=== PATIENT | female | born 1995 | race Two or more races ===

== ENCOUNTER → 2017-09-16 | Outpatient (CLI) | payer BC ==
[2017-09-16 14:40] LABS: Eosinophils # (auto) 0.1 uL; Eosinophils % (auto) 1.5 % (0.0-7.0); Lymphocytes # (auto) 2.5 uL; Monocytes # (auto) 0.5 uL; Neutrophils # (auto) 6.2 uL; White Blood Cell 9.4 10^3/uL (4.4-10.8)
[2017-09-16 14:43] LABS: Basophils # (auto) 0.1 uL; Basophils % (auto) 0.7 % (0.0-2.0); Hematocrit 40.4 % (36.0-46.0); Hemoglobin 13.3 g/dL (12.2-16.2); Lymphocytes % (auto) 26.2 % (10.0-50.0); Mean Corpuscular Hemoglobin 26.9 pg (28.0-32.0); Mean Corpuscular Hgb Conc. 32.9 g/dL (32.0-36.0); Mean Corpuscular Volume 81.7 fL (80.0-100.0); Mean Platelet Volume 8.8 fL (6.9-10.8); Monocytes % (auto) 5.3 % (0.0-12.0); Neutrophils % (auto) 66.3 % (37.0-80.0); Nucleated Red Blood Cells % 0.1 %; Platelet Count (auto) 274 10^3/uL (140-450)
[2017-09-16 14:56] LABS: Albumin 3.9 g/dL (3.4-5.0); BUN/Creatinine Ratio 13.4; Bilirubin, Total 0.4 mg/dL (0.2-1.0); Calcium 9.2 mg/dL (8.5-10.1); Magnesium 2.2 mg/dL (1.6-2.6)
[2017-09-16 15:17] LABS: Urine Bilirubin Negative (Negative); Urine Blood Negative /uL (Negative); Urine Color Yellow (Yellow); Urine Glucose Normal (Normal); Urine Ketone Negative (Negative); Urine Mucus FEW (None Seen); Urine Nitrite Negative (Negative); Urine RBC 2 /hpf (0 - 4); Urine Squamous Epithelial Cell MOD /hpf (<5); Urine Urobilinogen Normal (Negative); Urine pH 6.5 (5.0-8.0)
== END | disposition home or self-care (01) ==
LOC: LAB 14:06
PROVIDERS: ATTEND Internal Medicine
DX: E11.9 Type 2 diabetes mellitus without complications (principal); E78.5 Hyperlipidemia, unspecified; E55.9 Vitamin D deficiency, unspecified
CPT/HCPCS: 36415; 80053; 80061; 81001; 82306; 82607; 83036; 83735; 84443; 84550; 85025

== ENCOUNTER → 2020-01-27 | Outpatient (CLI) | payer BC ==
[2020-01-27 15:41] LABS: Basophils # (auto) 0 10 ^3/uL (0-0.2); Basophils % (auto) 0.5 % (0.0-2.0); Eosinophils # (auto) 0.1 10 ^3/uL (0-0.8); Eosinophils % (auto) 1.8 % (0.0-7.0); Hematocrit 37.3 % (36.0-46.0); Hemoglobin 12.3 g/dL (12.2-16.2); Lymphocytes # (auto) 1.6 10 ^3/uL (0.4-5.4); Lymphocytes % (auto) 21.9 % (10.0-50.0); Mean Corpuscular Hemoglobin 27.9 pg (28.0-32.0); Mean Corpuscular Hgb Conc. 33.1 g/dL (32.0-36.0); Mean Corpuscular Volume 84.3 fL (80.0-100.0); Monocytes # (auto) 0.5 10 ^3/uL (0-1.3); Monocytes % (auto) 6.4 % (0.0-12.0); Neutrophils # (auto) 5.2 10 ^3/uL (1.6-8.6); Neutrophils % (auto) 69.4 % (37.0-80.0); Platelet Count (auto) 266 10^3/uL (140-450); Red Blood Cells 4.42 10^6/uL (4.0-5.20); Red Cell Distribution Width 15.5 % (11.8-14.3); White Blood Cell 7.4 10^3/uL (4.4-10.8)
[2020-01-27 15:44] LABS: Urine Bacteria NONE SEEN /hpf (None Seen); Urine Blood Negative /uL (Negative); Urine Mucus FEW (None Seen); Urine Specific Gravity 1.028 (1.001-1.035); Urine WBC 16 /hpf (0 - 5)
[2020-01-27 16:11] LABS: Calcium 9.1 mg/dL (8.5-10.1); Potassium 3.7 mmol/L (3.5-5.1)
[2020-01-27 16:15] LABS: BUN/Creatinine Ratio 19.5; Bilirubin, Total 0.3 mg/dL (0.2-1.0); Total Protein 8.1 g/dL (6.4-8.2)
[2020-01-27 16:20] LABS: Leuteinizing Hormone 3.2 IU/L
[2020-01-27 16:21] LABS: Follicle Stimulating Hormone 6.85 IU/L (SEE BELOW)
== END | disposition home or self-care (01) ==
LOC: LAB 15:15
PROVIDERS: ATTEND Internal Medicine
DX: R73.03 Prediabetes (principal); E55.9 Vitamin D deficiency, unspecified; R10.2 Pelvic and perineal pain
CPT/HCPCS: 36415; 80053; 81001; 82150; 83001; 83002; 83036; 83690; 84443; 85025

== ENCOUNTER → 2020-03-02 | Outpatient (CLI) | payer BC | END | disposition home or self-care (01) | LOC: LAB 13:02 | PROVIDERS: ATTEND Internal Medicine | DX: E55.9 Vitamin D deficiency, unspecified (principal); R10.2 Pelvic and perineal pain; R73.03 Prediabetes | CPT/HCPCS: 87493 ==

== ENCOUNTER → 2020-05-04 | Day surgery (SDC) | payer BC ==
[2020-05-02 11:36] LABS: Basophils # (auto) 0 10 ^3/uL (0-0.2); Eosinophils # (auto) 0.1 10 ^3/uL (0-0.8); Mean Corpuscular Hemoglobin 26.8 pg (28.0-32.0); White Blood Cell 6.9 10^3/uL (4.4-10.8)
[2020-05-02 11:39] LABS: Basophils % (auto) 0.4 % (0.0-2.0); Hematocrit 37.3 % (36.0-46.0); Hemoglobin 12.2 g/dL (12.2-16.2); Lymphocytes # (auto) 1.7 10 ^3/uL (0.4-5.4); Lymphocytes % (auto) 24.4 % (10.0-50.0); Mean Corpuscular Hgb Conc. 32.8 g/dL (32.0-36.0); Mean Corpuscular Volume 81.5 fL (80.0-100.0); Monocytes # (auto) 0.4 10 ^3/uL (0-1.3); Neutrophils # (auto) 4.6 10 ^3/uL (1.6-8.6); Neutrophils % (auto) 67.2 % (37.0-80.0); Platelet Count (auto) 260 10^3/uL (140-450); Red Blood Cells 4.58 10^6/uL (4.0-5.20)
[2020-05-02 11:44] LABS: INR 1.03 (0.9-1.15); Partial Thromboplastin Time 30.2 sec (23.64-32.05)
[~2020-05-04] VITALS: Ht 162.6 cm; Wt 108.9 kg
[~2020-05-04] MED LIST: LIDOCAINE VISCOUS 2% 15ML UD ONE; SODIUM CHLORIDE LOCK 10 ML ONE; diphenhdrAMINE HCL 50 MG/1 ML VL ONE
[2020-05-04] MEDS: MIDAZOLAM HCL 5 MG/ML-1ML VIAL ONE ×3 (13:20→13:26)
[2020-05-04] MEDS: fentaNYL CITRATE 100 MCG/2 ML VL ONE ×2 (13:20→13:23)
[2020-05-04 13:50] VITALS: BP 122/56
== END | disposition home or self-care (01) ==
LOC: GI 12:32
PROVIDERS: ATTEND Internal Medicine Gastroenterology
DX: R10.13 Epigastric pain (principal); K29.50 Unspecified chronic gastritis without bleeding; K44.9 Diaphragmatic hernia without obstruction or gangrene; K22.8 Other specified diseases of esophagus; J45.909 Unspecified asthma, uncomplicated; F32.9 Major depressive disorder, single episode, unspecified; Z11.59 Encounter for screening for other viral diseases; Z98.890 Other specified postprocedural states; Z79.899 Other long term (current) drug therapy
CPT/HCPCS: 36415; 43239; 84702; 85025; 85610; 85730; 88305; 88342; J1200; J2250; J3010; J7030; U0003

== ENCOUNTER → 2020-06-21 | Outpatient (CLI) | payer BC ==
[2020-06-21 10:40] LABS: Basophils # (auto) 0 10 ^3/uL (0-0.2); Eosinophils # (auto) 0.2 10 ^3/uL (0-0.8); Hemoglobin 11.8 g/dL (12.2-16.2); Lymphocytes # (auto) 2.1 10 ^3/uL (0.4-5.4); Monocytes # (auto) 0.5 10 ^3/uL (0-1.3)
[2020-06-21 10:45] LABS: Basophils % (auto) 0.4 % (0.0-2.0); Eosinophils % (auto) 2.6 % (0.0-7.0); Hematocrit 35.6 % (36.0-46.0); Mean Corpuscular Hemoglobin 26.9 pg (28.0-32.0); Mean Corpuscular Hgb Conc. 33.2 g/dL (32.0-36.0); Mean Corpuscular Volume 81.2 fL (80.0-100.0); Monocytes % (auto) 6.6 % (0.0-12.0); Neutrophils # (auto) 5.3 10 ^3/uL (1.6-8.6); Neutrophils % (auto) 64.4 % (37.0-80.0); Platelet Count (auto) 284 10^3/uL (140-450); Red Blood Cells 4.38 10^6/uL (4.0-5.20); Red Cell Distribution Width 15.3 % (11.8-14.3); White Blood Cell 8.2 10^3/uL (4.4-10.8)
[2020-06-21 10:57] LABS: Follicle Stimulating Hormone 4.88 IU/L (SEE BELOW); Leuteinizing Hormone 8.7 IU/L
== END | disposition home or self-care (01) ==
LOC: LAB 08:53
PROVIDERS: ATTEND Obstetrics & Gynecology
DX: N92.6 Irregular menstruation, unspecified (principal)
CPT/HCPCS: 36415; 82670; 83001; 83002; 84403; 84443; 85025

== ENCOUNTER 2021-10-28 07:26 | Emergency (ER) | payer BC ==
[~2021-10-28] VITALS: Ht 162.6 cm; Wt 108.9 kg
[2021-10-28 07:30] VITALS: BP 139/78
[2021-10-28 08:01] LABS: Urine Bacteria FEW /hpf (None Seen); Urine Blood 3+ /uL (Negative); Urine Mucus FEW (None Seen); Urine WBC 5 /hpf (0 - 5)
[2021-10-28 08:08] LABS: Basophils # (auto) 0.1 10 ^3/uL (0-0.2); Eosinophils # (auto) 0.2 10 ^3/uL (0-0.8); Mean Corpuscular Hemoglobin 26.9 pg (28.0-32.0); Mean Corpuscular Hgb Conc. 32.7 g/dL (32.0-36.0); Neutrophils # (auto) 7.2 10 ^3/uL (1.6-8.6); Red Cell Distribution Width 15.5 % (11.8-14.3)
[2021-10-28 08:11] LABS: Basophils % (auto) 0.5 % (0.0-2.0); Eosinophils % (auto) 1.8 % (0.0-7.0); Hematocrit 39.2 % (36.0-46.0); Hemoglobin 12.8 g/dL (12.2-16.2); Lymphocytes # (auto) 2.2 10 ^3/uL (0.4-5.4); Lymphocytes % (auto) 21.6 % (10.0-50.0); Mean Corpuscular Volume 82.3 fL (80.0-100.0); Monocytes # (auto) 0.6 10 ^3/uL (0-1.3); Monocytes % (auto) 5.4 % (0.0-12.0); Neutrophils % (auto) 70.7 % (37.0-80.0); Red Blood Cells 4.76 10^6/uL (4.0-5.20); White Blood Cell 10.2 10^3/uL (4.4-10.8)
[2021-10-28 08:26] LABS: Potassium 3.8 mmol/L (3.5-5.1)
[2021-10-28] MEDS ORDERED: ONDANSETRON ODT 4 MG TAB PO ONE (08:30)
[2021-10-28] MEDS ORDERED: KETOROLAC TROMETH 60MG/2ML VIAL IM ONE (08:30)
[2021-10-28 08:32] LABS: Albumin 3.8 g/dL (3.4-5.0); BUN/Creatinine Ratio 18.2; Bilirubin, Total 0.2 mg/dL (0.2-1.0); Calcium 8.9 mg/dL (8.5-10.1); Total Protein 7.8 g/dL (6.4-8.2)
[2021-10-28] MEDS ORDERED: IBUP800T27 PO (08:44)
[2021-10-28] MEDS ORDERED: CIPR-173 PO (08:44)
== END 2021-10-28 08:48 | disposition home or self-care (01) ==
LOC: ER 07:26
DX: K80.20 Calculus of gallbladder without cholecystitis without obstruction (principal); N39.0 Urinary tract infection, site not specified; J45.909 Unspecified asthma, uncomplicated
CPT/HCPCS: 36415; 76705; 80053; 81001; 81025; 83690; 85025; 96372; 99284; J1885; Q0162

== ENCOUNTER → 2021-11-28 | Outpatient (CLI) | payer BC ==
[~2021-11-28] MED LIST changes: +CIPR-173 PO; +IBUP800T27 PO; -LIDOCAINE VISCOUS 2% 15ML UD ONE; -SODIUM CHLORIDE LOCK 10 ML ONE; -diphenhdrAMINE HCL 50 MG/1 ML VL ONE
[2021-11-28 10:39] LABS: Cholesterol 156 mg/dL (< 200); HDL Cholesterol 35 mg/dL (40-59); LDL Cholesterol 86 mg/dL (< 100); Triglycerides 237 mg/dL (< 150)
== END | disposition home or self-care (01) ==
LOC: LAB 09:42
PROVIDERS: ATTEND Internal Medicine
DX: F32.9 Major depressive disorder, single episode, unspecified (principal); R73.03 Prediabetes
CPT/HCPCS: 36415; 80061; 82043; 83036

== ENCOUNTER → 2022-04-17 | Outpatient (CLI) | payer BC ==
[2022-04-17 13:14] LABS: Cholesterol 173 mg/dL (< 200); HDL Cholesterol 44 mg/dL (40-59); LDL Cholesterol 98 mg/dL (< 100); Triglycerides 213 mg/dL (< 150)
== END | disposition home or self-care (01) ==
LOC: LAB 11:43
PROVIDERS: ATTEND Internal Medicine
DX: R73.03 Prediabetes (principal); E78.5 Hyperlipidemia, unspecified
CPT/HCPCS: 36415; 80061; 83036

== ENCOUNTER 2022-06-20 10:42 | Inpatient (IN) | payer BC ==
[2022-06-18 13:01] LABS: Eosinophils # (auto) 0.1 10 ^3/uL (0-0.8); Hemoglobin 11.3 g/dL (12.2-16.2); Lymphocytes # (auto) 2.1 10 ^3/uL (0.4-5.4); Monocytes # (auto) 0.4 10 ^3/uL (0-1.3); White Blood Cell 8.7 10^3/uL (4.4-10.8)
[2022-06-18 13:05] LABS: Basophils # (auto) 0.1 10 ^3/uL (0-0.2); Basophils % (auto) 0.7 % (0.0-2.0); Eosinophils % (auto) 1.6 % (0.0-7.0); Hematocrit 35.7 % (36.0-46.0); Lymphocytes % (auto) 23.7 % (10.0-50.0); Mean Corpuscular Hemoglobin 26.1 pg (28.0-32.0); Mean Corpuscular Hgb Conc. 31.5 g/dL (32.0-36.0); Mean Corpuscular Volume 82.8 fL (80.0-100.0); Monocytes % (auto) 4.8 % (0.0-12.0); Neutrophils % (auto) 69.2 % (37.0-80.0); Nucleated Red Blood Cells % 0.1 %; Red Blood Cells 4.31 10^6/uL (4.0-5.20); Red Cell Distribution Width 15.5 % (11.8-14.3)
[2022-06-18 13:12] LABS: Urine Bacteria NONE SEEN /hpf (None Seen); Urine Blood 3+ /uL (Negative); Urine Mucus FEW (None Seen); Urine Specific Gravity 1.028 (1.001-1.035); Urine WBC 5 /hpf (0 - 5)
[2022-06-18 13:28] LABS: Albumin 3.5 g/dL (3.4-5.0); Calcium 8.7 mg/dL (8.5-10.1); Potassium 4.2 mmol/L (3.5-5.1)
[2022-06-18 13:32] LABS: BUN/Creatinine Ratio 15.9; Bilirubin, Total 0.5 mg/dL (0.2-1.0); Total Protein 7.3 g/dL (6.4-8.2)
[2022-06-18 13:33] LABS: INR 0.96 (0.9-1.15); Partial Thromboplastin Time 29.6 sec (24.6-33.4)
[~2022-06-20] VITALS: Ht 162.6 cm; Wt 117.5 kg
[~2022-06-20 10:42] MED LIST changes: +ALBUAER3 IN; -CIPR-173 PO; -IBUP800T27 PO; +OMEP20TA85 PO
[2022-06-20] MEDS ORDERED: ceFAZolin 1GM/50ML 100 ML IV ONE (11:20)
[2022-06-20] MEDS ORDERED: fentaNYL CITRATE 100 MCG/2 ML VL ONE (12:53)
[2022-06-20] MEDS ORDERED: NEOSTIGMINE 1 MG/ML INJ (10mg/10ML VIAL) ONE (12:54)
[2022-06-20] MEDS ORDERED: DexAMETHasone SOD PHOS 10MG/1ML VIAL INJ ONE (12:54)
[2022-06-20] MEDS ORDERED: MIDAZOLAM HCL 2MG/2ML 2ml VIAL (1mg/ml) ONE (12:54)
[2022-06-20] MEDS ORDERED: MEPERIDINE HCL (50 MG/ML) 1 ML VIAL ONE (12:54)
[2022-06-20] MEDS ORDERED: ROCURONIUM 10MG/ML 10ML VIAL IV ONE (12:54)
[2022-06-20] MEDS ORDERED: SODIUM CHLORIDE LOCK 10 ML ONE (12:54)
[2022-06-20] MEDS ORDERED: ONDANSETRON HCL 4 MG/2 ML VIAL ONE (12:54)
[2022-06-20] MEDS ORDERED: PROPOFOL 10 MG/ML 20 ML IV ONE (12:54)
[2022-06-20] MEDS ORDERED: METOCLOPRAMIDE HCL 5MG/ml INJ 2ml VIAL IV PRN (13:45)
[2022-06-20] MEDS ORDERED: HYDROmorphone HCL 2 MG/ML VL/or syr IV PRN ×2 (13:45)
[2022-06-20] MEDS ORDERED: MORPHINE SULFATE 4 MG/ML SYR/VIAL IV PRN (13:45)
[2022-06-20] MEDS ORDERED: GLYCOPYRROLATE 0.2 MG/ML 1ML VIAL IV ONE (14:07)
[2022-06-20] MEDS ORDERED: BUPIVACAINE 0.25% INJ 50ML VIAL IJ ONE (15:23)
[2022-06-20] MEDS ORDERED: KETOROLAC TROMETH 60MG/2ML VIAL ONE (15:42)
[2022-06-20] MEDS ORDERED: HYDROmorphone HCL 2 MG/ML VL/or syr ONE (16:04)
[2022-06-20] MEDS ORDERED: HYDROmorphone HCL 2 MG/ML VL/or syr IV ONE ×2 (16:15→16:25)
[2022-06-20] MEDS: D5W/SOD CHL 0.45%/KCL 20MEQ 1,000 ML IV SCH (19:17)
[2022-06-20] MEDS: HYDROmorphone HCL 2 MG/ML VL/or syr IV PRN (21:18)
[2022-06-20] MEDS: ONDANSETRON HCL 4 MG/2 ML VIAL IV PRN (21:19)
[2022-06-20 22:00] VITALS: BP 111/56
[2022-06-21] MEDS: ONDANSETRON HCL 4 MG/2 ML VIAL IV PRN (01:21)
[2022-06-21] MEDS: HYDROcodone-ACET 5/325MG TAB PO PRN ×2 (01:22→09:07)
[2022-06-21] MEDS: HYDROmorphone HCL 2 MG/ML VL/or syr IV PRN (04:24)
[2022-06-21] MEDS: D5W/SOD CHL 0.45%/KCL 20MEQ 1,000 ML IV SCH (04:32)
[2022-06-21 05:00] VITALS: BP 109/57
[2022-06-21 05:30] LABS: Basophils # (auto) 0 10 ^3/uL (0-0.2); Eosinophils # (auto) 0 10 ^3/uL (0-0.8); Hemoglobin 10.2 g/dL (12.2-16.2); Monocytes # (auto) 0.5 10 ^3/uL (0-1.3); Red Cell Distribution Width 15.3 % (11.8-14.3); White Blood Cell 14.2 10^3/uL (4.4-10.8)
[2022-06-21 05:36] LABS: Basophils % (auto) 0.2 % (0.0-2.0); Hematocrit 31.5 % (36.0-46.0); Lymphocytes # (auto) 0.9 10 ^3/uL (0.4-5.4); Lymphocytes % (auto) 6.4 % (10.0-50.0); Mean Corpuscular Hemoglobin 27.2 pg (28.0-32.0); Mean Corpuscular Hgb Conc. 32.6 g/dL (32.0-36.0); Mean Corpuscular Volume 83.4 fL (80.0-100.0); Monocytes % (auto) 3.5 % (0.0-12.0); Neutrophils # (auto) 12.8 10 ^3/uL (1.6-8.6); Neutrophils % (auto) 89.9 % (37.0-80.0); Red Blood Cells 3.77 10^6/uL (4.0-5.20)
[2022-06-21 05:53] LABS: Albumin 3.1 g/dL (3.4-5.0); BUN/Creatinine Ratio 14.3; Calcium 8.1 mg/dL (8.5-10.1); Potassium 4.3 mmol/L (3.5-5.1)
[2022-06-21 05:55] LABS: Bilirubin, Total 0.3 mg/dL (0.2-1.0); Total Protein 6.4 g/dL (6.4-8.2)
[2022-06-21 09:00] VITALS: BP 99/46
[2022-06-21] MEDS ORDERED: cefTRIAXone 1GM/50ML D5W 50 ML IV SCH (09:00)
[2022-06-21] MEDS: PANTOPRAZOLE 40 MG/10 ML VIAL INJ IV SCH ×2 (09:07→10:30)
[2022-06-21 12:47] VITALS: BP 105/51
== END 2022-06-21 14:00 | disposition home or self-care (01) | DRG 418 ==
LOC: SUR 10:42 → CENTRAL 17:00 → EEVIPCON 17:00
PROVIDERS: ADMIT Surgery; ATTEND Internal Medicine
PROC: 0FT44ZZ Resection of Gallbladder, Percutaneous Endoscopic Approach (ICD-10-PCS; principal; 2022-06-20 14:45)
DX: K80.10 Calculus of gallbladder with chronic cholecystitis without obstruction (principal); Z68.41 Body mass index [BMI] 40.0-44.9, adult; E66.01 Morbid (severe) obesity due to excess calories; Z20.822 Contact with and (suspected) exposure to COVID-19; J45.909 Unspecified asthma, uncomplicated
CPT/HCPCS: 36415; 80053; 81001; 84702; 85025; 85610; 85730; 86850; 86900; 86901; C9113; G0378; J0690; J0696; J1100; J1885; J2250; J2405; J2704; J3490

== ENCOUNTER → 2022-10-24 | Outpatient (CLI) | payer BC ==
[2022-10-24 10:49] LABS: Basophils # (auto) 0 10 ^3/uL (0-0.2); Eosinophils # (auto) 0.1 10 ^3/uL (0-0.8); Lymphocytes # (auto) 1.9 10 ^3/uL (0.4-5.4); Monocytes # (auto) 0.5 10 ^3/uL (0-1.3)
[2022-10-24 10:51] LABS: Basophils % (auto) 0.5 % (0.0-2.0); Eosinophils % (auto) 1.7 % (0.0-7.0); Hemoglobin 9.7 g/dL (12.2-16.2); Lymphocytes % (auto) 21.5 % (10.0-50.0); Mean Corpuscular Hemoglobin 20.8 pg (28.0-32.0); Mean Corpuscular Hgb Conc. 30.4 g/dL (32.0-36.0); Mean Corpuscular Volume 68.3 fL (80.0-100.0); Monocytes % (auto) 5.5 % (0.0-12.0); Neutrophils # (auto) 6.1 10 ^3/uL (1.6-8.6); Neutrophils % (auto) 70.8 % (37.0-80.0); Red Blood Cells 4.68 10^6/uL (4.0-5.20); Red Cell Distribution Width 19.2 % (11.8-14.3); White Blood Cell 8.6 10^3/uL (4.4-10.8)
[2022-10-24 11:12] LABS: Albumin 3.4 g/dL (3.4-5.0); Potassium 3.9 mmol/L (3.5-5.1)
[2022-10-24 11:18] LABS: Bilirubin, Total 0.3 mg/dL (0.2-1.0); Total Protein 6.9 g/dL (6.4-8.2)
[2022-10-24 11:23] LABS: Urine Bacteria NONE SEEN /hpf (None Seen); Urine Blood 3+ /uL (Negative); Urine Mucus FEW (None Seen); Urine Specific Gravity 1.016 (1.001-1.035); Urine WBC 9 /hpf (0 - 5)
== END | disposition home or self-care (01) ==
LOC: LAB 10:31
PROVIDERS: ATTEND Internal Medicine
DX: E66.01 Morbid (severe) obesity due to excess calories (principal); R73.03 Prediabetes
CPT/HCPCS: 36415; 80053; 80061; 81001; 82043; 83036; 85025

== ENCOUNTER → 2022-12-04 | Outpatient (CLI) | payer BC | END | disposition home or self-care (01) | LOC: LAB 09:07 | PROVIDERS: ATTEND Internal Medicine | DX: G93.2 Benign intracranial hypertension (principal) | CPT/HCPCS: 36415; 82565; 84520 ==

== ENCOUNTER → 2023-03-19 | Outpatient (CLI) | payer BC | END | disposition home or self-care (01) | LOC: LAB 09:54 | PROVIDERS: ATTEND Internal Medicine | DX: R73.03 Prediabetes (principal); E55.9 Vitamin D deficiency, unspecified; D64.9 Anemia, unspecified | CPT/HCPCS: 36415; 82306; 82533; 83036 ==

== ENCOUNTER → 2023-10-09 | Outpatient (CLI) | payer BC ==
[2023-10-10 06:06] LABS: Mumps IgG Antibody 49.9 AU/mL (Immune >10.9); Varicella Zoster IgG Antibody <135 index (Immune >165)
== END | disposition home or self-care (01) ==
LOC: LAB 12:49
PROVIDERS: ATTEND Internal Medicine
DX: Z00.00 Encounter for general adult medical examination without abnormal findings (principal)
CPT/HCPCS: 36415; 83036; 86706; 86735; 86762; 86765; 86787

== ENCOUNTER 2023-12-16 11:21 | Emergency (ER) | payer BC ==
[~2023-12-16] VITALS: Ht 162.6 cm; Wt 119.7 kg
[2023-12-16 11:51] VITALS: BP 124/72; PULSE 61; RESP 16; TEMP 97; O2SAT 99
[2023-12-16] MEDS ORDERED: IBUPROFEN 400 MG TAB PO ONE (12:15)
== END 2023-12-16 12:14 | disposition home or self-care (01) ==
LOC: ER 11:21
DX: M65.4 Radial styloid tenosynovitis [de Quervain] (principal); J45.909 Unspecified asthma, uncomplicated; K80.20 Calculus of gallbladder without cholecystitis without obstruction; Z79.899 Other long term (current) drug therapy

== ENCOUNTER 2024-05-14 12:57 | Emergency (ER) | payer BC, OTHER ==
[~2024-05-14] VITALS: Ht 162.6 cm; Wt 126.7 kg
[2024-05-14 14:41] VITALS: BP 141/66; PULSE 79; RESP 16; TEMP 97.8; O2SAT 98
[2024-05-14 15:12] LABS: Hepatitis B Surface Antibody Positive (Negative)
[2024-05-14 15:24] LABS: Hepatitis B Surface Antigen Negative (Negative)
== END 2024-05-14 14:49 | disposition home or self-care (01) ==
LOC: ER 12:57
DX: Z77.21 Contact with and (suspected) exposure to potentially hazardous body fluids (principal); J45.909 Unspecified asthma, uncomplicated; K80.20 Calculus of gallbladder without cholecystitis without obstruction; Z79.899 Other long term (current) drug therapy
CPT/HCPCS: 36415; 86703; 86706; 86803; 87340

== ENCOUNTER → 2024-10-22 | Outpatient (CLI) | payer MEDICAID ==
[2024-10-22 08:36] LABS: Basophils # (auto) 0 10 ^3/uL (0-0.2); Basophils % (auto) 0.6 % (0.0-2.0); Eosinophils # (auto) 0.2 10 ^3/uL (0-0.8); Eosinophils % (auto) 2.8 % (0.0-7.0); Hematocrit 41.4 % (36.0-46.0); Hemoglobin 13.9 g/dL (12.2-16.2); Lymphocytes # (auto) 0.9 10 ^3/uL (0.4-5.4); Lymphocytes % (auto) 12.3 % (10.0-50.0); Mean Corpuscular Hemoglobin 28.8 pg (28.0-32.0); Mean Corpuscular Hgb Conc. 33.6 g/dL (32.0-36.0); Mean Corpuscular Volume 85.8 fL (80.0-100.0); Monocytes # (auto) 0.7 10 ^3/uL (0-1.3); Monocytes % (auto) 9.7 % (0.0-12.0); Neutrophils # (auto) 5.3 10 ^3/uL (1.6-8.6); Neutrophils % (auto) 74.6 % (37.0-80.0); Platelet Count (auto) 228 10^3/uL (140-450); Red Blood Cells 4.83 10^6/uL (4.0-5.20); Red Cell Distribution Width 14.9 % (11.8-14.3); White Blood Cell 7.1 10^3/uL (4.4-10.8)
[2024-10-22 09:47] LABS: Alanine Aminotransferase 39 U/L (7-40); Alkaline Phosphatase 106 U/L (46-116); Anion Gap 8 (5-15); Aspartate Aminotransferase 15 U/L (13-40); BUN/Creatinine Ratio 11.3 (10.0-20.0); Blood Urea Nitrogen 9 mg/dL (9-23); Carbon Dioxide 26 mmol/L (20-31); Chloride 106 mmol/L (98-107); Glucose 94 mg/dL (74-106); LDL Cholesterol 85 mg/dL (< 100); Potassium 4.1 mmol/L (3.5-5.1); Sodium 140 mmol/L (136-145); Triglycerides 104 mg/dL (< 150)
[2024-10-22 09:48] LABS: Albumin 4.4 g/dL (3.2-4.8); Cholesterol 139 mg/dL (< 200)
[2024-10-22 09:49] LABS: Bilirubin, Total 0.5 mg/dL (0.2-1.0); HDL Cholesterol 41 mg/dL (40-59); Total Protein 6.9 g/dL (5.7-8.2)
== END | disposition home or self-care (01) ==
LOC: LAB 08:19
PROVIDERS: ATTEND Internal Medicine
DX: E55.9 Vitamin D deficiency, unspecified (principal); Z00.00 Encounter for general adult medical examination without abnormal findings
CPT/HCPCS: 36415; 80053; 80061; 82306; 85025